=== PATIENT | male | born 1975 | race Caucasian/White ===

== ENCOUNTER 2023-07-07 11:20 | Emergency (ER) | payer OTHER, SELFPAY ==
[2023-07-07 11:24] VITALS: BP 144/103
[2023-07-07 11:44] VITALS: BMI 34.1
[2023-07-07 11:50] LABS: % Basophils 0.3 % (0-2); % Eosinophils 0.1 % (0-6); % Immature Granulocytes 0.3 % (0-0.5); % Lymphocytes 13.2 % (20.5-51.1); % Monocytes 6.2 % (1.7-9.3); % Neutrophils 79.9 % (42.2-75.2); Absolute Lymphocytes 1.2 10^3/uL (1.2-3.4); Absolute Monocytes 0.6 10^3/uL (0.1-0.6); Absolute Neutrophils 7.5 10^3/uL (1.4-6.5); Hematocrit 46.7 % (39.0-52.0); Hemoglobin 16.5 g/dL (13.0-18.0); Mean Corp Hgb Conc. 35.3 g/dL (33.0-37.0); Mean Corpuscular Hgb 29.8 pg (27.0-31.0); Mean Corpuscular Volume 84.4 fL (80.0-94.0); Mean Platelet Volume 9.7 fL (7.4-10.4); Nucleated Red Blood Cells % 0 % (-); Platelet Count 349 10^3/uL (130-400); Red Blood Cell Count 5.53 10^6/uL (4.70-6.10); Red Cell Dist. Width 12.2 % (11.5-14.5); White Blood Cell Count 9.4 10^3/uL (4.8-10.8)
[2023-07-07 12:07] LABS: ALT (SGPT) 28 U/L (0-50); AST (SGOT) 23 U/L (17-59); Albumin 4.4 g/dl (3.5-5.0); Alkaline Phosphatase 69 U/L (38-126); Blood Urea Nitrogen 10 mg/dl (9-20); Calcium 9.3 mg/dl (8.4-10.2); Carbon Dioxide 24 mmol/L (22-30); Chloride 101 mmol/L (98-107); Estimated Creatinine Clearance 105 ml/min; Glucose 143 mg/dl (70-99); Lipase 92 U/L (23-300); Potassium 3.7 mmol/L (3.5-5.1); Sodium 134 mmol/L (135-145); Total Bilirubin 0.7 mg/dl (0.2-1.3); Total Protein 7.2 g/dl (6.3-8.2); eGFR > 60.00
[2023-07-07 12:08] VITALS: BP 139/86
[2023-07-07 12:11] VITALS: BP 139/86
[2023-07-07 12:19] LABS: Troponin I < 0.012 ng/ml
[2023-07-07] MEDS: MAALOX 40 PO (12:38)
[2023-07-07] MEDS: PROTONIX IV 40 MG IV (12:39)
--- NOTE | 2023-07-07 12:53 | ED.GENMED ---
History of Present Illness
General
Chief Complaint: Abdominal Pain
Source: patient
Exam Limitations: none
Time Seen by Provider: 07/07/23 11:54
Nursing documentation reviewed up to this point in time: agreed with
Travel History
Have you had any contact with someone who has COVID-19?: No
Do you have any symptoms of coronavirus? Fever > 100 degrees, chills, cough, shortness of breath, sore throat, loss of taste or smell, muscle aches, or headache?: No
History of Present Illness
History of Present Illness:
pt is 47 y/o M with no reported pmh
here with epigastric pain started 3 days ago
in the middle of the night
pt says he orderd food out and ate chicken parm. woke up at 2 am with nausea and pain. it felt like acid reflux burning. took tums and pepto
pain has come in waves, is epigastric, nonradiating
feels uncomfortable, worse with lying flat. Patient says he called his doctor yesterday and was called in a prescription for Zofran because he is having some nausea symptoms. He never vomits. He did have a couple of episodes of loose stool.
Because of the Pepto-Bismol the stool is dark. Patient has no history of peptic ulcer disease. He smokes marijuana daily. He is not having any fever or chills, shortness of breath, weakness in the legs, urinary symptoms. Patient says that other
family members also got some GI symptoms after eating this meal.
Past History
Past History
ED Past Medical History: None
ED Past Surgical History: None
Social History
Tobacco: Non-smoker
Alcohol: None
Drug: Marijuana
Review of Systems
Review of Systems
Allergies reviewed?: Yes
All Other Systems: Not applicable
Phy Exam
Physical Exam
Physical Exam:
GENERAL: Alert , uncomfortable
EYE: pupils equal and reactive
NECK: Supple
ENT: o/p clr, mmm.
CARDIAC: Regular rate and rhythm .
LUNGS: Clear breath sounds bilaterally, no acute respiratory distress, no wheezes/rales/rhonchi
ABDOMEN: Soft, distended, without focal tenderness, no r/g, no cvat, normal bowel sounds
retal heme neg brown stool
NEUROLOGICAL: Alert and oriented, no focal neuro deficits
SKIN: Warm and dry, skin intact.
MUSCULOSKELETAL: No edema, well perfused. neg payal's sign
PSYCH: Normal and appropriate interaction.
Course
Orders/Labs/Results
Orders:
Orders
07/07/23 11:42
CMP [Comprehensive Metabolic Panel] Urgent
Complete Blood Count/With Diff Urgent
Lipase Urgent
Troponin I Urgent
07/07/23 12:31
Electrocardiogram (*1) Urgent
Reason for Study: Abdominal Pain
CT Abd/Pel (IV only)-DH only Urgent
Comment:
Reason For Exam: upper abd pain
EKG- Treatment ONCE
Mag Hydrox/Al Hydrox/Simeth [Maalox] 30 ml Phenobarb/Hyoscy/Atropine/Scop [] 10 ml PO NOW
Pantoprazole [Protonix IV] 40 mg IV NOW STA
07/07/23 12:35
Phenobarb/Hyoscy/Atropine/Scop [] 10 ml .ROUTE .STK-MED ONE
07/07/23 12:36
Mag Hydrox/Al Hydrox/Simeth [Maalox] 30 ml .ROUTE .STK-MED ONE
Abnormal Lab Results
07/07/23
11:42
Absolute Neuts (auto) 7.5 H 10^3/uL
(1.4-6.5)
Neutrophils % 79.9 H %
(42.2-75.2)
Lymphocytes % 13.2 L %
(20.5-51.1)
Sodium 134 L mmol/L
(135-145)
Glucose 143 H mg/dl
(70-99)
07/07/23 11:42
07/07/23 11:42
Vital Signs
Initial and Last Documented VS:
Initial Vital Signs
Temp Pulse Resp BP Pulse Ox
98.2 F 98 16 144/103 98
07/07/23 11:24 07/07/23 11:24 07/07/23 11:24 07/07/23 11:24 07/07/23 11:24
Last Documented Vital Signs
Temp Pulse Resp BP Pulse Ox
98.2 F 92 16 121/88 94
07/07/23 11:24 07/07/23 13:18 07/07/23 13:18 07/07/23 14:00 07/07/23 14:00
MDM/Problems Addressed
Differential Diagnosis Includes:
Postviral gastritis, colitis, bowel obstruction,
MDM/Problems Addressed:
47-year-old male with no reported medical problems presents for epigastric/upper abdominal pain for the last couple of days coming in waves after having some diarrhea after eating chicken farm which she got at a restaurant. Other members who ate
this also got sick. Patient has heartburn-like sensation in his epigastric region which has been off-and-on. He has tried Pepto and Zofran which was called in by his family doctor. Patient says laying back makes his pain worse. He is not having
any black stool other than slightly dark from the Pepto. On exam the patient looked uncomfortable slightly but was not significantly tender. He had a heme-negative brown stool. his hemoglobin is stable, his BUN was normal and his CT showed no
obvious concerning findings. Patient had complete resolution of symptoms with Protonix and GI cocktail. I suspect the patient may have gastritis versus ulcer. Stable for discharge with Protonix for 2 weeks and recommend that he follow-up with GI
*Critical Care Note
Total Time (30-74mins, 75-104mins- exclusive of procedures): Not Applicable
ED Attending Note
-
Portions of this chart may have been created with voice recognition software.� Occasional wrong word or��sound alike� substitutions may have occurred due to the inherent limitations of voice recognition software.
Discharge Plan
Departure
Patient Disposition: Home (Routine Discharge)
Date of Disposition: 07/07/23
Time of Disposition: 14:12
Patient with high blood pressure during this ER visit?: No
Condition: Fair
Covid-19: Not Applicable
Discharge Problem:
Gastritis
Instructions: Gastritis (DC)
Prescriptions:
New
pantoprazole [Protonix] 20 mg tablet,delayed release (DR/EC)
20 mg PO DAILY Qty: 20 0RF
No Action
ondansetron HCl [Zofran] 8 mg Tablet
8 mg PO Q8H PRN (Reason: nausea)
Pepto-Bismol
1 tab PO . DIRECTED PRN (Reason: abd distress)
Referrals:
Randal Rob MD [Active] - Follow up in 5-7 days
NONE,* [Family Provider] -
Activity Restrictions/Additional Instructions:
This probably is pain caused by a viral infection from a stomach bug or he could have a stomach ulcer. It is really important that you follow-up with the GI doctor. Avoid acidic foods and spicy foods because they can irritate your stomach. Start
with a bland diet and increase as tolerated. Take Protonix 20 mg on an empty stomach each morning with a large glass of water and wait 45 minutes before eating anything. You can use Maalox 2-3 times a day as needed for ongoing stomach pains.
Return to the ER for black stool, fever, vomiting blood, severe pain, or any concerns
Interventions
Interventions:
*Risk Screen - Suicide Last Done: 07/07/23 11:44
*General Assessment Last Done: 07/07/23 11:44
*Neglect/Abuse Screening Last Done: 07/07/23 11:44
ED- Fall Risk Assessment Last Done: 07/07/23 11:44
*ED COVID-19 Vaccine History Last Done: 07/07/23 11:24
*Nursing Disposition Last Done: 07/07/23 14:24
ZP-Iuhjuf-Ijumstuont Assessment Last Done: 07/07/23 11:46
Discharge Date and Time
Discharge Date/Time: 07/07/23 14:25
[2023-07-07 13:16] VITALS: BP 138/92
[2023-07-07 13:18] VITALS: BP 138/92
[2023-07-07 14:00] VITALS: BP 121/88
== END 2023-07-07 14:25 | disposition home or self-care (01) ==
LOC: EMR 11:20
PROVIDERS: EMERGENCY PHYSICIAN Emergency Medicine
DX: K29.70 Gastritis, unspecified, without bleeding (principal); R10.9 Unspecified abdominal pain
CPT/HCPCS: 99284; 96374; 74177; 80053; 83690; 84484; 85025; 93005; Q9967

== ENCOUNTER → 2023-09-12 06:35 | Day surgery (SDC) | payer OTHER, SELFPAY | LOC: GI 06:35 | PROVIDERS: ATTENDING PHYSICIAN Internal Medicine Gastroenterology | DX: Z12.11 Encounter for screening for malignant neoplasm of colon (principal); D12.2 Benign neoplasm of ascending colon; D12.3 Benign neoplasm of transverse colon; K64.0 First degree hemorrhoids | CPT/HCPCS: 45385; 45380; 88305 ==

== ENCOUNTER → 2024-12-07 09:03 | Outpatient (REF) | payer OTHER, SELFPAY | LOC: HWRAD 09:03 | PROVIDERS: ATTENDING PHYSICIAN Physician Assistant Medical | DX: E04.9 Nontoxic goiter, unspecified (principal); Z77.9 Other contact with and (suspected) exposures hazardous to health | CPT/HCPCS: 71046; 76536 ==